=== PATIENT | female | born 1985 | race Caucasian/White ===

== ENCOUNTER 2017-03-06 12:48 | Inpatient (IN) | payer BC ==
[2017-03-06 19:15] VITALS: BMI 23.3
--- NOTE | 2017-03-06 19:27 | HP ---
CIWA Score - CIWA Score Nausea/Vomitin-Mild Nausea/No Vomiting Muscle Tremors: 4-Moderate,w/Arms Extend Anxiety: 4-Mod. Anxious/Guarded Agitation: 4-Moderately Restless Paroxysmal Sweats: 3 Orientation: 0-Oriented Tacttile Disturbances: 0-None Auditory Disturbances: 0-None Visual Disturbances: 0-None Headache: 0-None Present CIWA-Ar Total Score: 16 Admission ROS BHS - HPI Chief Complaint: Withdrawal sx. History of Present Illness: 31 y/o woman with a long hx of alcoholism is admitted for detox. Pt. denies previous detox,she currently attends out-pt. at [facility]. Exam Limitations: No Limitations - Ebola screening Have you traveled outside of the country in the last 21 days: No Have you had contact with anyone from an Ebola affected area: No Have you been sick,other than usual withdrawal symptoms: No Do you have a fever: No - Review of Systems Constitutional: Diaphoresis EENT: reports: No Symptoms Reported Respiratory: reports: Cough (smoker's cough) Cardiac: reports: No Symptoms Reported GI: reports: Nausea, Abdominal cramping : reports: No Symptoms Reported Musculoskeletal: reports: No Symptoms Reported Integumentary: reports: Sweating Neuro: reports: Seizure (was on keppra but stopped 6 months ago, at least 3 seizures since then), Tremors Endocrine: reports: No Symptoms Reported Hematology: reports: No Symptoms Reported Psychiatric: reports: No Sypmtoms Reported Other Systems: Reviewed and Negative Patient History - Patient Medical History Hx Anemia: No Hx Asthma: No Hx Chronic Obstructive Pulmonary Disease (COPD): No Hx Cancer: No Hx Cardiac Disorders: No Hx Congestive Heart Failure: No Hx Hypertension: No Hx Hypercholesterolemia: No Hx Pacemaker: No HX Cerebrovascular Accident: No Hx Seizures: Yes (Epilepsy was on keppra) Hx Dementia: No Hx Diabetes: No Hx Gastrointestinal Disorders: No Hx Liver Disease: No Hx Genitourinary Disorders: No Hx Sexually Transmitted Disorders: No Hx Renal Disease (ESRD): No Hx Thyroid Disease: No Hx Human Immunodeficiency Virus (HIV): No Hx Hepatitis C: No Hx Depression: No (?) Hx Suicide Attempt: Yes (tried to slashed wrist at 10 y/o) Hx Bipolar Disorder: No Hx Schizophrenia: No - Patient Surgical History Past Surgical History: No - PPD History Previous Implant?: Yes Documented Results: Negative w/o proof PPD to be Administered?: Yes - Reproductive History Patient is a Female of Child Bearing Age (11 -55 yrs old): Yes Last Menstrual Period: 03/05/17 Patient : No - Smoking Cessation Smoking history: Current every day smoker Aproximately how many cigarettes per day: 8 Hx Chewing Tobacco Use: No Initiated information on smoking cessation: Yes 'Breaking Loose' booklet given: 03/06/17 - Substance & Tx. History Hx Alcohol Use: Yes Hx Substance Use: No Substance Use Type: Alcohol Hx Substance Use Treatment: Yes (out-pt. at [facility],current) - Substances Abused Alcohol Route: Oral Frequency: Daily Amount used: Beer 2(6pack) Age of first use: 9 Date of Last Use: 03/06/17 Family Disease History - Family Disease History Family Disease History: Heart Disease: Mother (HTN) Admission Physical Exam [facility] - Vital Signs Vital Signs: Vital Signs - 24 hr 03/06/17 19:13 Temperature 97.4 F L Pulse Rate 105 H Respiratory 16 Rate Blood Pressure 113/56 - Physical General Appearance: Yes: Alcohol on Breath, Tremorous, Irritable, Sweating, Anxious HEENTM: Yes: Within Normal Limits Respiratory: Yes: Chest Non-Tender, Lungs Clear, Normal Breath Sounds Neck: Yes: Supple Breast: Yes: Breast Exam Deferred Cardiology: Yes: Regular Rhythm, Regular Rate, S1, S2 Abdominal: Yes: Normal Bowel Sounds, Non Tender, Flat, Soft Genitourinary: Yes: Within Normal Limits Back: Yes: Within Normal Limits Musculoskeletal: Yes: Within Normal Limits Extremities: Yes: Tremors Neurological: Yes: Fully Oriented, Alert Integumentary: Yes: Diaphoresis Lymphatic: Yes: Within Normal Limits - Diagnostic (1) Alcohol dependence with uncomplicated withdrawal Current Visit: Yes Status: Acute (2) Seizure disorder Current Visit: Yes Status: Acute Cleared for Admission [facility] - Detox or Rehab [facility] Level of Care: Medically Managed Detox Regimen/Protocol: Librium [facility] Breath Alcohol Content Breath Alcohol Content: 0.189 Urine Pregancy Test - Result Urine Test Results: Negative- NO Line Present Urine Drug Screen - Results Drug Screen Negative: No Urine Drug Screen Results: THC-Marijuana, [place]-Cocaine
[2017-03-06] MEDS ORDERED: LOPERAMIDE HCL 2 MG CAPSULE PO PRN (19:41)
[2017-03-06] MEDS ORDERED: P-EPHED 60MG/TRIPROLIDI 2.5MG TABLET PO PRN (19:41)
[2017-03-06] MEDS ORDERED: MENTHOL/PHENOL 1 EACH UD MM PRN (19:41)
[2017-03-06] MEDS ORDERED: chlordiazePOXIDE HCL 25 MG CAPSULE PO ONE (19:41)
[2017-03-06] MEDS ORDERED: guaiFENesin/D-METHORPHAN HB 10 ML UNIT-DOSE CUPS PO PRN (19:41)
[2017-03-06] MEDS ORDERED: MAG HYDROX/AL HYDROX/SIMETH 30 ML UNIT-DOSE CUP PO PRN (19:41)
[2017-03-06] MEDS ORDERED: MAGNESIUM CITRATE 300 ML BOTTLE PO PRN (19:41)
[2017-03-06] MEDS ORDERED: MAGNESIUM HYDROX 2400MG/30ML ORAL SUSPENSION 30 ML CUP PO PRN (19:41)
[2017-03-06] MEDS ORDERED: chlordiazePOXIDE HCL 25 MG CAPSULE PO PRN (19:41)
[2017-03-06] MEDS ORDERED: NICOTINE POLACRILEX 2 MG GUM BC PRN (19:41)
[2017-03-06] MEDS ORDERED: ACETAMINOPHEN 325 MG TABLET (FP) PO PRN (19:41)
[2017-03-06] MEDS: chlordiazePOXIDE HCL 25 MG CAPSULE PO SCH (23:46)
[2017-03-06] MEDS: levETIRAcetam 500 MG TABLET (FP) PO SCH (23:47)
[2017-03-06] MEDS: THIAMINE HCL 100 MG TABLET (FP) PO SCH (23:47)
[2017-03-06] MEDS: diphenhydrAMINE HCL 50 MG CAPSULE PO PRN (23:47)
[2017-03-06] MEDS: NICOTINE 21 MG/24 HOURS TOPICAL PATCH TD SCH (23:53)
[2017-03-07] MEDS: chlordiazePOXIDE HCL 25 MG CAPSULE PO SCH ×4 (08:36→22:14)
[2017-03-07 10:20] LABS: MCH 34.5 pg (25.7-33.7); MCHC 33.2 g/dl (32.0-36.0); MEAN CELL VOLUME 103.9 fl (80-96); MEAN PLT VOLUME 8.9 fl (7.5-11.1); PLATELET COUNT 226 K/MM3 (134-434); RDW 14.4 % (11.6-15.6); WHITE BLOOD COUNT 5.2 K/mm3 (4.0-10.0)
[2017-03-07] MEDS: levETIRAcetam 500 MG TABLET (FP) PO SCH ×2 (10:32→22:14)
[2017-03-07] MEDS: PRENATAL VITAMINS W/ FOLIC ACID TABLET (FP) PO SCH (10:32)
[2017-03-07] MEDS: NICOTINE 21 MG/24 HOURS TOPICAL PATCH TD SCH (10:34)
[2017-03-07 10:39] LABS: ALK PHOS 72 U/L (45-117); ANION GAP 8 (8-16); BILIRUBIN,TOTAL 0.7 mg/dL (0.2-1.0); CALCIUM 8.5 mg/dL (8.5-10.1); CO2 25 mmol/L (21-32); CREATININE 0.6 mg/dL (0.55-1.02); GLUCOSE,RANDOM 67 mg/dL (74-106); SGOT/AST 26 U/L (15-37); SGPT/ALT 19 U/L (12-78); TOT PROT 6.5 g/dl (6.4-8.2)
[2017-03-07 10:59] LABS: HIV 1 & 2 AB NEGATIVE; HIV 1 AGp24 NEGATIVE
--- NOTE | 2017-03-07 11:50 | PN ---
S CIWA - CIWA Score Nausea/Vomitin Muscle Tremors: 3 Anxiety: 3 Agitation: 2 Paroxysmal Sweats: 1-Minimal Palms Moist Orientation: 0-Oriented Tacttile Disturbances: 1-Very Mild Itch/Numbness Auditory Disturbances: 1-Very Mild Visual Disturbances: 1-Very Mild Sensitivity Headache: 2-Mild CIWA-Ar Total Score: 17 BHS Progress Note (SOAP) Subjective: ALERT,IRRITABLE,ANXIOUS,INTERRUPTED SLEEP,TREMOR,PAIN IN THE BODY Objective: 03/07/17 11:48 Vital Signs Temperature 97.0 F L 03/07/17 09:54 Pulse Rate 86 03/07/17 09:54 Respiratory Rate 16 03/07/17 09:54 Blood Pressure 135/72 03/07/17 09:54 O2 Sat by Pulse Oximetry (%) EKG NSR,NORMAL ECG 03/07/17 11:49 Laboratory Last Values WBC 5.2 K/mm3 (4.0-10.0) 03/07/17 07:40 RBC 4.05 M/mm3 (3.60-5.2) 03/07/17 07:40 Hgb 13.9 GM/dL (10.7-15.3) 03/07/17 07:40 Hct 42.0 % (32.4-45.2) 03/07/17 07:40 MCV 103.9 fl (80-96) H 03/07/17 07:40 MCH 34.5 pg (25.7-33.7) H 03/07/17 07:40 MCHC 33.2 g/dl (32.0-36.0) 03/07/17 07:40 RDW 14.4 % (11.6-15.6) 03/07/17 07:40 Plt Count 226 K/MM3 (134-434) 03/07/17 07:40 MPV 8.9 fl (7.5-11.1) 03/07/17 07:40 Sodium 141 mmol/L (136-145) 03/07/17 07:40 Potassium 3.6 mmol/L (3.5-5.1) 03/07/17 07:40 Chloride 108 mmol/L (98-107) H 03/07/17 07:40 Carbon Dioxide 25 mmol/L (21-32) 03/07/17 07:40 Anion Gap 8 (8-16) 03/07/17 07:40 BUN 5 mg/dL (7-18) L 03/07/17 07:40 Creatinine 0.6 mg/dL (0.55-1.02) 03/07/17 07:40 Creat Clearance w eGFR > 60 (>60) 03/07/17 07:40 Random Glucose 67 mg/dL (74-106) L 03/07/17 07:40 Calcium 8.5 mg/dL (8.5-10.1) 03/07/17 07:40 Total Bilirubin 0.7 mg/dL (0.2-1.0) 03/07/17 07:40 AST 26 U/L (15-37) 03/07/17 07:40 ALT 19 U/L (12-78) 03/07/17 07:40 Alkaline Phosphatase 72 U/L (45-117) 03/07/17 07:40 Total Protein 6.5 g/dl (6.4-8.2) 03/07/17 07:40 Albumin 3.0 g/dl (3.4-5.0) L 03/07/17 07:40 RPR Titer Nonreactive (NONREACTIVE) 03/07/17 07:40 HIV 1&2 Antibody Screen Negative 03/07/17 07:40 HIV P24 Antigen Negative 03/07/17 07:40 Assessment: 03/07/17 11:50 WITHDRAWAL SYMPTOM Plan: CONTINUE DETOX,BGM IN AM INITIAL GLUCOSE IS 67
[2017-03-07] MEDS ORDERED: FLU VACCINE QUAD 60 MCG/0.5 ML (MDV 17-18) IM ONE (12:00)
--- NOTE | 2017-03-07 16:28 | EKG ---
Test Reason : Blood Pressure : / mmHG Vent. Rate : 094 BPM Atrial Rate : 094 BPM P-R Int : 126 ms QRS Dur : 078 ms QT Int : 356 ms P-R-T Axes : 059 051 037 degrees QTc Int : 445 ms NORMAL SINUS RHYTHM RSR' IN V1 NO PREVIOUS ECGS AVAILABLE CORRELATE CLINICALLY Confirmed by RUPERTO BORDEN MD ([id number]) on 03/07/2017 4:28:13 PM Referred By: Confirmed By:RUPERTO BORDEN MD
[2017-03-07 17:52] LABS: URINE APPEARANCE CLOUDY; URINE BILIRUBIN NEGATIVE (NEGATIVE); URINE BLOOD 3+ (NEGATIVE); URINE COLOR AMBER; URINE GLUCOSE (UA) NEGATIVE (NEGATIVE); URINE KETONE NEGATIVE (NEGATIVE); URINE NITRITE POSITIVE (NEGATIVE); URINE UROBILINOGEN NEGATIVE mg/dL (0.2-1.0)
[2017-03-07 17:53] LABS: URINE PROTEIN 1+ (NEGATIVE)
[2017-03-07 17:58] LABS: URINE BACTERIA MODERATE /hpf (NONE SEEN); URINE MUCUS RARE; URINE RBC 12 /hpf (0-3); URINE WBC 26 /hpf (3-5); YEAST FEW
[2017-03-07 21:07] LABS: URINE LEUK ESTERASE 1+ (NEGATIVE)
[2017-03-07] MEDS: THIAMINE HCL 100 MG TABLET (FP) PO SCH (22:14)
[2017-03-07] MEDS: diphenhydrAMINE HCL 50 MG CAPSULE PO PRN (22:14)
[2017-03-08] MEDS: chlordiazePOXIDE HCL 25 MG CAPSULE PO SCH ×3 (05:40→17:40)
[2017-03-08] MEDS: PRENATAL VITAMINS W/ FOLIC ACID TABLET (FP) PO SCH (10:15)
[2017-03-08] MEDS: levETIRAcetam 500 MG TABLET (FP) PO SCH ×2 (10:15→22:25)
[2017-03-08] MEDS: NICOTINE 21 MG/24 HOURS TOPICAL PATCH TD SCH (10:15)
--- NOTE | 2017-03-08 11:10 | PN ---
S CIWA - CIWA Score Nausea/Vomitin Muscle Tremors: 3 Anxiety: 3 Agitation: 3 Paroxysmal Sweats: 1-Minimal Palms Moist Orientation: 0-Oriented Tacttile Disturbances: 1-Very Mild Itch/Numbness Auditory Disturbances: 1-Very Mild Visual Disturbances: 0-None Headache: 2-Mild CIWA-Ar Total Score: 17 BHS Progress Note (SOAP) Subjective: ALERT,IRRITABLE,ANXIOUS,INTERRUPTED SLEEP,PAIN IN THE BODY,BACK Objective: 03/08/17 11:09 Vital Signs Temperature 97.9 F 03/08/17 09:43 Pulse Rate 73 03/08/17 09:43 Respiratory Rate 18 03/08/17 09:43 Blood Pressure 110/78 03/08/17 09:43 O2 Sat by Pulse Oximetry (%) Assessment: 03/08/17 11:09 WITHDRAWAL SYMPTOM Plan: CONTINUE DETOX,NO URINARY COMPLAINT
[2017-03-08] MEDS: chlordiazePOXIDE 5 MG CAPSULE PO SCH (22:25)
[2017-03-08] MEDS: THIAMINE HCL 100 MG TABLET (FP) PO SCH (22:26)
[2017-03-08] MEDS: diphenhydrAMINE HCL 50 MG CAPSULE PO PRN (22:27)
[2017-03-09] MEDS: chlordiazePOXIDE 5 MG CAPSULE PO SCH ×3 (05:13→17:44)
--- NOTE | 2017-03-09 09:51 | PN ---
S Progress Note (SOAP) Subjective: ALERT,IRRITABLE,ANXIOUS,INTERRUPTED SLEEP Objective: 03/09/17 09:50 Vital Signs Temperature 97.5 F L 03/09/17 06:09 Pulse Rate 80 03/09/17 06:09 Respiratory Rate 18 03/09/17 06:09 Blood Pressure 101/50 03/09/17 06:09 O2 Sat by Pulse Oximetry (%) Assessment: 03/09/17 09:50 WITHDRAWAL SYMPTOM Plan: CONTINUE DETOX,DISCHARGE IN AM
[2017-03-09] MEDS: NICOTINE 21 MG/24 HOURS TOPICAL PATCH TD SCH (10:14)
[2017-03-09] MEDS: levETIRAcetam 500 MG TABLET (FP) PO SCH ×2 (10:14→22:14)
[2017-03-09] MEDS: PRENATAL VITAMINS W/ FOLIC ACID TABLET (FP) PO SCH (10:14)
[2017-03-09] MEDS: chlordiazePOXIDE HCL 10 MG CAPSULE PO SCH (22:14)
[2017-03-09] MEDS: THIAMINE HCL 100 MG TABLET (FP) PO SCH (22:14)
[2017-03-09] MEDS: diphenhydrAMINE HCL 50 MG CAPSULE PO PRN (22:14)
[2017-03-10] MEDS: diphenhydrAMINE HCL 50 MG CAPSULE PO PRN (01:27)
[2017-03-10] MEDS: chlordiazePOXIDE HCL 10 MG CAPSULE PO SCH (05:14)
--- NOTE | 2017-03-10 08:38 | DS ---
[facility] Detox Discharge Summary Admission Date: 03/06/17 Discharge Date: 03/10/17 - History Present History: Alcohol Dependence Additional Comments: follow up with after care program as arrangement Pertinent Past History: seizure disorder - Physical Exam Results Vital Signs: Vital Signs Temperature 96.4 F L 03/10/17 06:17 Pulse Rate 68 03/10/17 06:17 Respiratory Rate 16 03/10/17 06:17 Blood Pressure 105/71 03/10/17 06:17 O2 Sat by Pulse Oximetry (%) Pertinent Admission Physical Exam Findings: withdrawal finding - Treatment Hospital Course: Detox Protocol Followed, Detoxed Safely, Responded well, Discharged Condition Good Patient has Accepted a Rehab Referral to: declined - Medication Discharge Medications: Ambulatory Orders Levetiracetam [Keppra -] 500 mg PO BID 03/06/17 - Diagnosis (1) Alcohol dependence with uncomplicated withdrawal Current Visit: Yes Status: Acute (2) Seizure disorder Current Visit: Yes Status: Acute - AMA Did Patient Leave Against Medical Advice: No
[2017-03-10 10:45] VITALS: BP 100/60; PULSE 70; TEMP 98.8
== END 2017-03-10 09:55 | disposition home or self-care (01) | DRG 775 ==
LOC: YASAS 12:48 → Y6N 20:54
PROVIDERS: ADMIT Internal Medicine; ATTEND Internal Medicine
PROC: HZ2ZZZZ Detoxification Services for Substance Abuse Treatment (ICD-10-PCS; principal; 2017-03-06)
DX: F10.230 Alcohol dependence with withdrawal, uncomplicated (principal); F17.210 Nicotine dependence, cigarettes, uncomplicated; G40.909 Epilepsy, unspecified, not intractable, without status epilepticus; Z91.5 Personal history of self-harm
CPT/HCPCS: 36415; 80053; 81003; 81015; 85027; 86593; 87389; 90688; 93005; 93010; G0008